=== PATIENT | male | born 1975 | race Caucasian/White ===

== ENCOUNTER 2022-11-25 22:29 | Emergency (ER) | payer SELFPAY ==
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
--- NOTE | ~2022-11-25 | CT_ITS ---
EXAMINATION: CT FACIAL BONES WITHOUT CONTRAST CLINICAL INFORMATION: Evaluate for nasal bone fractures COMPARISON: None TECHNIQUE: Multidetector CT imaging of the maxillofacial bones was performed without the use of intravenous contrast. Coronal and sagittal reformats created on an independent workstation were reviewed. This CT examination was performed using dose optimization techniques as appropriate, variously including the following: *Automated exposure control *Adjustment of mA and/or kV according to patient size (this includes techniques or standardized protocols for targeted exams where dose is matched to indication/reason for exam; i.e. extremities or head) *Use of iterative reconstruction technique DLP: 258 mGy-cm FINDINGS: Minimally displaced bilateral nasal bone fractures, with leftward deviation of the nasal bones. There is rightward deviation of the osseous nasal septum. No osseous nasal septal fracture is identified. No additional acute maxillofacial fractures are seen. Mucosal thickening within the bilateral maxillary sinuses. Remainder of the paranasal sinuses are clear. The mandibular heads are well-seated in the condylar fossa. The orbits demonstrate a normal appearance bilaterally. The globes are intact, and there are no suspicious findings to suggest retrobulbar hemorrhage. Soft tissue swelling anterior to the nasal bones, more pronounced on the right. CT/CT facial bones wo IV con IMPRESSION: * Minimally displaced bilateral nasal bone fractures, with leftward deviation of the nasal bones. * No additional acute facial bone fractures.
[2022-11-25 22:50] VITALS: BP 170/101; PULSE 76; RESP 18; TEMP 36.6; O2SAT 98; BMI 28.5
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
--- NOTE | 2022-11-26 00:44 | PC.NURSE ---
Pt to CT
[2022-11-26] MEDS: Ibuprofen 600 MG TABLET PO (01:48)
== END 2022-11-26 01:56 | disposition home or self-care (01) ==
PROVIDERS: Emergency Provider Emergency Medicine; PCP Internal Medicine
DX: S02.2XXA Fracture of nasal bones, initial encounter for closed fracture (principal); W50.0XXA Accidental hit or strike by another person, initial encounter; Y93.89 Activity, other specified; Y92.252 Music hall as the place of occurrence of the external cause; Y99.9 Unspecified external cause status
CPT/HCPCS: 70160; 70486; 99284